=== PATIENT | male | born 1945 | race Caucasian/White ===

== ENCOUNTER 2021-10-01 09:47 | Emergency (ER) | payer MEDICARE, BC ==
[~2021-10-01] VITALS: Ht 160 cm; Wt 108.6 kg
[2021-10-01 11:02] LABS: HEMATOCRIT 39.9 % (39.0-50.0); HEMOGLOBIN 13.3 g/dl (14.0-18.0); IMMATURE GRANULOCYTES 0.3 % (0.0-5.0); MEAN CELL VOLUME 102.3 fL CALC (80.0-100.0); MEAN CORPUSCULAR HGB 34.1 pG CALC (26.0-32.0); MEAN CORPUSCULAR HGB CONC 33.3 g/dL CAL (32.0-36.0); NEUT# 4.48 thou/uL (1.82-7.42); RED BLOOD COUNT 3.9 mill/uL (4.70-6.10); RED CELL DISTRI WIDTH 12.4 % (11.5-15.5)
[2021-10-01 11:52] LABS: ALBUMIN 3.9 g/dL (3.2-5.0); ALKALINE PHOSPHATASE 95 u/l (38-126); ANION GAP 13 (6-22 (CALC)); BILIRUBIN, TOTAL 0.6 mg/dL (0.0-1.4); BUN 8 mg/dL (8-23); BUN/CREATININE RATIO 12 (12-20 (CALC)); CARBON DIOXIDE 27 mmol/l (22-30); CHLORIDE 103 mmol/l (95-108); CREATININE 0.6 mg/dL (0.7-1.3); GFR > 60 ML/MIN (>=60 (CALC)); GFR FOR AFR.AMER. > 60 ML/MIN (>=60 (CALC)); POTASSIUM 3.5 mmol/l (3.5-5.1); SGOT/AST 21 u/l (19-48); SODIUM 140 mmol/l (137-146); TOTAL PROTEIN 7.1 g/dL (6.3-8.2)
[2021-10-01] MEDS ORDERED: CEPHALEXIN500 MG PO (12:31)
[2021-10-01 12:38] VITALS: BP 159/102
== END 2021-10-01 12:44 | disposition home or self-care (01) ==
LOC: ED 09:47 → ED-I 12:17 → ED 12:44
PROVIDERS: Family Medicine
DX: R07.9 Chest pain, unspecified (principal); L03.112 Cellulitis of left axilla; I10 Essential (primary) hypertension; E66.9 Obesity, unspecified; Z95.5 Presence of coronary angioplasty implant and graft

== ENCOUNTER 2024-08-04 05:53 | Emergency (ER) | payer MEDICARE, BC ==
[~2024-08-04] VITALS: Ht 160 cm; Wt 78.0 kg
[~2024-08-04 05:53] MED LIST: CEPHALEXIN500 MG PO
[2024-08-04 06:39] VITALS: BP 200/96
[2024-08-04 06:46] VITALS: BP 188/80
[2024-08-04 07:00] VITALS: BP 183/86
[2024-08-04 07:15] VITALS: BP 183/86
== END 2024-08-04 07:20 | disposition home or self-care (01) ==
LOC: ED 05:53
DX: M54.2 Cervicalgia (principal); G89.29 Other chronic pain; I10 Essential (primary) hypertension; I48.91 Unspecified atrial fibrillation

== ENCOUNTER 2024-09-06 09:47 | Emergency (ER) | payer MEDICARE, BC ==
[~2024-09-06] VITALS: Ht 160 cm; Wt 90.0 kg
[2024-09-06] MEDS ORDERED: hydrALAZINE HCL 20 MG/ML VIAL(1 ML) IV ONE (10:05)
[2024-09-06] MEDS ORDERED: ACETAMINOPHEN 500 MG TAB PO ONE (10:25)
[2024-09-06 10:31] LABS: BASO% 0.5 % (0-3); HEMATOCRIT 37.6 % (39.0-50.0); HEMOGLOBIN 12.1 g/dl (14.0-18.0); IMMATURE GRANULOCYTES 0.2 % (0.0-5.0); LYMPH% 27.4 % (15-41); MEAN CELL VOLUME 104.7 fL CALC (80.0-100.0); MEAN CORPUSCULAR HGB 33.7 pG CALC (26.0-32.0); MEAN CORPUSCULAR HGB CONC 32.2 g/dL CAL (32.0-36.0); MONO% 10.4 % (2-13); NEUT# 3.52 thou/uL (1.82-7.42); NEUT% 56.5 % (42-76); RED BLOOD COUNT 3.59 mill/uL (4.70-6.10)
[2024-09-06 10:43] LABS: ALBUMIN 4.1 g/dL (3.2-5.0); ALKALINE PHOSPHATASE 82 u/l (38-126); ANION GAP 10 (6-22 (CALC)); BUN 15 mg/dL (8-23); BUN/CREATININE RATIO 19 (12-20 (CALC)); CARBON DIOXIDE 32 mmol/l (22-30); CHLORIDE 99 mmol/l (95-108); CREATININE 0.8 mg/dL (0.7-1.3); ESTIMATED GFR 90 ML/MIN (>=90 (CALC)); SGOT/AST 23 u/l (19-48); SODIUM 136 mmol/l (137-146)
[2024-09-06 10:48] LABS: BILIRUBIN, TOTAL 0.9 mg/dL (0.2-1.3)
[2024-09-06] MEDS ORDERED: LORazepam 0.5 MG/TAB PO ONE (11:35)
[2024-09-06 12:40] VITALS: BP 178/86
== END 2024-09-06 12:15 | disposition left against medical advice (07) ==
LOC: ED 09:47
PROVIDERS: Family Medicine
DX: R07.9 Chest pain, unspecified (principal); R06.02 Shortness of breath; I48.91 Unspecified atrial fibrillation; I10 Essential (primary) hypertension; Z53.29 Procedure and treatment not carried out because of patient's decision for other reasons; Z20.822 Contact with and (suspected) exposure to COVID-19
CPT/HCPCS: J0360